=== PATIENT | female | born 1935 | race Caucasian/White ===

== ENCOUNTER 2022-07-31 11:02 | Emergency (ER) | payer OTHER ==
[~2022-07-31] VITALS: Ht 160 cm; Wt 70.4 kg
[2022-07-31 14:08] VITALS: BP 156/70
== END 2022-07-31 14:15 | disposition home or self-care (01) ==
LOC: ER 11:09
DX: S01.81XA Laceration without foreign body of other part of head, initial encounter (principal); S41.112A Laceration without foreign body of left upper arm, initial encounter; I48.91 Unspecified atrial fibrillation; Z88.8 Allergy status to other drugs, medicaments and biological substances; W18.39XA Other fall on same level, initial encounter; Y93.89 Activity, other specified; Y92.89 Other specified places as the place of occurrence of the external cause; Y99.8 Other external cause status
CPT/HCPCS: 70450; 70486; 72125; 73080; 73110

== ENCOUNTER 2023-06-29 22:46 | Emergency (ER) | payer OTHER ==
[~2023-06-29] VITALS: Ht 162.6 cm; Wt 64.9 kg
[~2023-06-29 22:46] MED LIST: ALBUAER3 IN; AMIO200T33 PO; APIX2.5T PO; DOX100T PO; FURO1TAB31 PO; FURO1TAB33 PO; LOSA50TA46 PO; LOVA20TA4 PO; NEBI5TAB2 PO
[2023-06-29 23:30] VITALS: PULSE 75; RESP 18; O2SAT 100
[2023-06-29 23:40] LABS: Basophils # (auto) 0.1 10 ^3/uL (0-0.2); Eosinophils # (auto) 0.1 10 ^3/uL (0-0.8); Lymphocytes % (auto) 14.5 % (10.0-50.0); Monocytes # (auto) 0.9 10 ^3/uL (0-1.3)
[2023-06-29 23:42] LABS: Basophils % (auto) 0.7 % (0.0-2.0); Eosinophils % (auto) 0.8 % (0.0-7.0); Hematocrit 40.4 % (36.0-46.0); Lymphocytes # (auto) 1.1 10 ^3/uL (0.4-5.4); Mean Corpuscular Hgb Conc. 32.2 g/dL (32.0-36.0); Monocytes % (auto) 11.2 % (0.0-12.0); Neutrophils # (auto) 5.7 10 ^3/uL (1.6-8.6); Neutrophils % (auto) 72.8 % (37.0-80.0); Nucleated Red Blood Cells % 0.1 %; Red Blood Cells 4.81 10^6/uL (4.0-5.20); Red Cell Distribution Width 16.6 % (11.8-14.3); White Blood Cell 7.8 10^3/uL (4.4-10.8)
[2023-06-29 23:56] LABS: INR 1.04 (0.9-1.15); Partial Thromboplastin Time 26.7 SEC (24.5-34.5)
[2023-06-29 23:58] LABS: Calcium 8.3 mg/dL (8.5-10.1); Magnesium 2.4 mg/dL (1.6-2.6); Potassium 3.9 mmol/L (3.5-5.1)
[2023-06-30 00:03] LABS: BUN/Creatinine Ratio 19.7 (10.0-20.0); Bilirubin, Total 0.4 mg/dL (0.2-1.0); Total Protein 6.5 g/dL (6.4-8.2)
[2023-06-30] MEDS ORDERED: ASPirin 81 mg TAB PO ONE (00:15)
[2023-06-30] MEDS ORDERED: IOHEXOL 350 MG/ML 100ML IJ ONE (02:36)
[2023-06-30 03:50] VITALS: BP 148/72; PULSE 88; RESP 14; TEMP 97.8; O2SAT 95
== END 2023-06-30 04:19 | disposition short-term general hospital (02) ==
LOC: ER 22:46 → EDBD 22:46 → ER 06-30 04:19
DX: I63.9 Cerebral infarction, unspecified (principal); I13.0 Hypertensive heart and chronic kidney disease with heart failure and stage 1 through stage 4 chronic kidney disease, or unspecified chronic kidney disease; N18.9 Chronic kidney disease, unspecified; I50.9 Heart failure, unspecified; E78.5 Hyperlipidemia, unspecified
CPT/HCPCS: 36415; 70450; 70496; 71045; 80053; 83735; 83880; 84484; 85025; 85610; 85730; 93005; 99291; Q9967

== ENCOUNTER 2024-11-10 15:52 | Inpatient (IN) | payer OTHER ==
[~2024-11-10] VITALS: Ht 160 cm; Wt 74.0 kg
[~2024-11-10 15:52] MED LIST changes: +LOSA-534 PO; -LOSA50TA46 PO; +NEBI5TAB10 PO; -NEBI5TAB2 PO
--- NOTE | 2024-11-10 16:18 | ED.PDOC ---
HPI Comments 89 y.o female with PMH of HDL, HTN, CKF, AFIB, and CHF, presents to the ED via EMS for an evaluation of HTN associated with palpitations, SOB, nausea and dizziness that has been ongoing for the past 3 days. Patient reports she called her PCP's office today to explain her symptoms and BP readings and was told to call 911. Upon ED arrival, patient's blood pressure read 182/95. Patient has been compliant with all medications including for HTN. Patient was taken off Lasix x 2 months ago. No other symptoms or pain reported. Patient was afebrile at arrival. Chief Complaint: High Blood Pressure Time Seen by MD: 16:09 Primary Care Provider: DR ANTHONY Reviewed Notes: Nurses Notes, Landscape Drafter Notes, Medications, Allergies Allergies: Coded Allergies: Amlodipine (Unverified Allergy, Mild, 03/22/16) Home Meds Active Scripts Furosemide (Lasix) 20 Mg Tb, 1 TAB PO DAILY@DINNER, #90 TAB 1 Refill Prov:ISIS WYNN MD 04/05/23 Albuterol Sulfate (VENTOLIN MDI) 90 Mcg Ih, 90 MCG IN Q6HPRN PRN, #1 INHALER Prov:ISIS WYNN MD 04/05/23 Doxycycline Monohydrate (Doxycycline Monohydrate) 100 Mg Tab, 100 MG PO Q12H, #14 TAB Prov:ISIS WYNN MD 04/05/23 Furosemide (Lasix) 40 Mg Tab, 40 MG PO DAILY@BREAKFAST, #30 TAB Prov:ISIS WYNN MD 04/05/23 Apixaban Base (ELIQUIS) 2.5 Mg Tab, 2.5 MG PO BID, #60 TAB Prov:ISIS WYNN MD 04/05/23 Reported Medications Lovastatin (Lovastatin) 20 Mg Tab, 20 MG PO, TAB 12/22/22 Nebivolol Hcl (Bystolic) 5 Mg Tab, 5 MG PO BID, TAB 12/22/22 Losartan Potassium (Losartan Potassium) 50 Mg Tab, 50 MG PO BID for 30 Days, MG 12/22/22 Amiodarone Hcl (Amiodarone Hcl) 200 Mg Tab, 100 MG PO BID for 30 Days 12/22/22 Information Source: Patient, Emergency Med Personnel Mode of Arrival: EMS Severity: Moderate Timing: Days (3) Duration: Since onset Prehospital treatment: 12 Lead EKG Onset: At Rest Cardiac Risk Factors: Hyperlipidemia, HTN PE Risk Factors: None History of: None Modifying Factors: Nothing Associated Signs and Symptoms: Palpitations Past Medical History PAST MEDICAL HISTORY: AFIB, CHF, CKF, High Lipids, HTN Surgical History: Denies all surgeries ASSISTANT PROFESSOR OF ENGLISH History: No Pertinent ASSISTANT PROFESSOR OF ENGLISH History Family History Family History: Reviewed,noncontributory to illness Social History Smoker: Non-Smoker Alcohol: Denies ETOH Use Drugs: Denies Drug Use Lives In: Home Constitutional: denies: chills, diaphoresis, fatigue, fever, malaise, sweats, weakness, others EENTM: denies: blurred vision, double vision, ear bleeding, ear discharge, ear drainage, ear pain, ear ringing, eye pain, eye redness, hearing loss, mouth pain, mouth swelling, nasal discharge, nose bleeding, nose congestion, nose pain, photophobia, tearing, throat pain, throat swelling, voice changes, others Respiratory: reports: SOB at rest, shortness of breath, SOB with excertion; denies: cough, hemoptysis, orthopnea, stridor, wheezing, others Cardiovascular: reports: palpitations; denies: chest pain, dizzy spells, diaphoresis, Dyspnea on exertion, edema, irregular heart beat, left arm pain, lightheadedness, PND, syncope, others Gastrointestinal: reports: nausea; denies: abdomen distended, abdominal pain, blood streaked bowels, constipated, diarrhea, dysphagia, difficulty swallowing, hematemesis, melena, poor appetite, poor fluid intake, rectal bleeding, rectal pain, vomiting, others Genitourinary: denies: abnormal vagina bleeding, burning, dyspareunia, dysuria, flank pain, frequency, hematuria, incontinence, pain, , vagina discharge, urgency, others Neurological: reports: dizziness; denies: fainting, headache, left sided numbness, left sided weakness, numbness, paresthesia, pre-existing deficit, right sided numbness, right sided weakness, seizure, speech problems, tingling, tremors, weakness, others Musculoskeletal: denies: back pain, gout, joint pain, joint swelling, muscle pain, muscle stiffness, neck pain, others Integumetry: denies: bruises, change in color, change in hair/nails, dryness, laceration, lesions, lumps, rash, wounds, others Allergic/Immunocompromised: denies: Difficulty Healing, Frequent Infections, Hives, Itching, others Hematologic/Lymphatic: denies: anemia, blood clots, easy bleeding, easy bruising, swollen glands, others Endocrine: denies: excessive hunger, excessive sweating, excessive thirst, excessive urination, flushing, intolerance to cold, intolerance to heat, unexplained weight gain, unexplained weight loss, others Psychiatric: denies: anxiety, bipolar disorder, depression, hopeless, panic disorder, schizophrenia, sleepless, suicidal, others All Other Systems: Reviewed and Negative Physical Exam General Appearance: Moderate Distress (Patient presents as a hylj-df-hkvwlutvph ill 89-year-old female.), Normal HEENT: Normal ENT Inspection, Pharynx Normal, TMs Normal Neck: Full Range of Motion, Non-Tender, Normal, Normal Inspection Respiratory: Chest Non-Tender, No Accessory Muscle Use, No Respiratory Distress, Other (Mild congestion noted in bilateral lung gramajo.) Cardiovascular: No Edema, No JVD, No Murmur, No Gallop, Normal Peripheral Pulses, Regular Rate/Rhythm Breast Exam: Deferred Gastrointestinal: No Organomegaly, Non Tender, No Pulsatile Mass, Normal Bowel Sounds, Soft Genitalia: Deferred Pelvic: Deferred Rectal: Deferred Extremities: No calf tenderness, Normal capillary refill, Normal inspection, Normal range of motion, Non-tender, No pedal edema Neurologic: Alert, No Motor Deficits, Normal Affect, Normal Mood, No Sensory Deficits Cerebellar Function: Normal Reflexes: Normal Skin: Dry, Normal Color, Warm Lymphatic: No Adenopathy Was a procedure done? Was a procedure done?: No CP Differential Dx Differential Diagnosis: A-fib, A-Flutter, Anxiety / Panic Attack, Electrolyte Disorder Differential Diagnosis: CHF, HTN Essential, HTN Accelerated Differential Diagnosis: Pneumonia X-Ray, Labs, Meds, VS Vital Signs Date Time Temp Pulse Resp B/P (MAP) Pulse Ox O2 Delivery O2 Flow Rate FiO2 11/10/24 17:33 137/65 11/10/24 16:38 77 16 97 Room Air* 0 21 11/10/24 16:31 180/95 11/10/24 16:13 97.1 90 16 180/95 (123) 98 97.1 11/10/24 16:03 98.0 76 20 182/80 (114) 91 11/10/24 15:54 79 Lab Test 11/10/24 19:48 11/10/24 19:29 11/10/24 18:15 11/10/24 16:25 Range/Units Urine Color Light-yellow Yellow Urine Clarity Clear Clear Urine pH 5.5 5.0-9.0 Urine Specific [place] 1.009 1.001-1.035 Urine Protein Negative Negative Urine Ketones Negative Negative Urine Blood Negative Negative /uL Urine Nitrite Negative Negative Urine Bilirubin Negative Negative Urine Urobilinogen Normal Negative mg/dL Urine Leukocyte Esterase Negative Negative /uL Urine RBC <1 0 - 4 /hpf Urine WBC 2 0 - 5 /hpf Urine Squamous Epithelial Cells Few <5 /hpf Urine Bacteria None seen None Seen /hpf Urine Glucose Normal Normal mg/dL Troponin I High Sensitivity 6 5 5 </=34 ng/L White Blood Count 7.3 4.4-10.8 10^3/uL Red Blood Count 5.04 4.0-5.20 10^6/uL Hemoglobin 10.8 L 12.2-16.2 g/dL Hematocrit 35.1 L 36.0-46.0 % Mean Corpuscular Volume 69.7 L 80.0-100.0 fL Mean Corpuscular Hemoglobin 21.4 L 28.0-32.0 pg Mean Corpuscular Hemoglobin Concent 30.7 L 32.0-36.0 g/dL Red Cell Distribution Width 20.1 H 11.8-14.3 % Platelet Count 340 140-450 10^3/uL Mean Platelet Volume 8.3 6.9-10.8 fL Neutrophils (%) (Auto) 70.3 37.0-80.0 % Lymphocytes (%) (Auto) 15.5 10.0-50.0 % Monocytes (%) (Auto) 10.8 0.0-12.0 % Eosinophils (%) (Auto) 1.3 0.0-7.0 % Basophils (%) (Auto) 2.1 H 0.0-2.0 % Neutrophils # (Auto) 5.2 1.6-8.6 10 ^3/uL Lymphocytes # (Auto) 1.1 0.4-5.4 10 ^3/uL Monocytes # (Auto) 0.8 0-1.3 10 ^3/uL Eosinophils # (Auto) 0.1 0-0.8 10 ^3/uL Basophils # (Auto) 0.2 0-0.2 10 ^3/uL Nucleated Red Blood Cells 0.1 % Prothrombin Time 11.9 H 9.3-11.8 sec Prothrombin Time INR 1.13 0.9-1.15 Activated Partial Thromboplast Time 29.6 24.5-34.5 SEC D-Dimer, Quantitative 0.61 H 0.0-0.49 mg/L FEU Sodium Level 140 136-145 mmol/L Potassium Level 5.1 3.5-5.1 mmol/L Chloride Level 107 98-107 mmol/L Carbon Dioxide Level 26 20-31 mmol/L Anion Gap 7 5-15 Blood Urea Nitrogen 17 9-23 mg/dL Creatinine 0.87 0.550-1.02 mg/dL Glomerular Filtration Rate Calc 64 >90 mL/min BUN/Creatinine Ratio 19.5 10.0-20.0 Serum Glucose 103 74-106 mg/dL Calcium Level 9.6 8.7-10.4 mg/dL Total Bilirubin 0.7 0.2-1.0 mg/dL Aspartate Amino Transferase (AST) 49 H 13-40 U/L Alanine Aminotransferase (ALT) 23 7-40 U/L Alkaline Phosphatase 197 H 46-116 U/L B-Type Natriuretic Peptide 330.36 0-100 pg/mL Total Protein 6.4 5.7-8.2 g/dL Albumin 4.2 3.2-4.8 g/dL Current Medications Medications (Trade) Dose Ordered Sig/Iain Route Start Time Stop Time Status Last Admin Clonidine HCl (Catapres Tablet) 0.2 mg ONCE ONCE PO 11/10/24 16:15 11/10/24 16:16 DC 11/10/24 16:31 X-Ray, Labs, Meds, VS Comment All studies performed the ED were reviewed by me personally. EKG revealed a rate controlled atrial fibrillation with a rate of 79. Ventricular premature complexes noted with nonspecific intraventricular conduction delays. QT interval of 420. Laboratories revealed an elevated BNP, elevated alk-phos and mild anemia. Imaging studies revealed continue cardiomegaly with improved bilateral airspace disease. Patient will be admitted for acute CHF exacerbation as well as hypertensive urgency. Patient will require a cardiac consultation tomorrow. Time of 1ST Reevaluation: 01:57 Reevaluation 1ST: Improved Consultation: PCP Patient Education/Counseling: Diagnosis, Treatment, Prognosis Family Education/Counseling: Diagnosis, Treatment, No Family Present Departure 1 Departure Time of Disposition: 01:58 Impression: Primary Impression: Atrial fibrillation Additional Impressions: Acute exacerbation of CHF (congestive heart failure) Hypertensive urgency Anemia Disposition: 09 ADMITTED INPATIENT Condition: Stable Discharged With: Self Critical Care Note Critical Care Time?: No Stability Stability form required: No Heart Score Heart Score: Heart Score Response (Comments) Value History Slightly Suspicious 0 EKG Repolarization Disturb 1 Age >65 2 Risk Factors >3 or Hx ASHD 2 Troponin Normal limit 0 Total 5 I personally scribed for DAVID CRAWFORD PAC ([email or web address]) on 11/10/24 at 16:18. Electronically submitted by Renetta Gunn ([facility]). DAVID CRAWFORD PAC Nov 10, 2024 16:18
[2024-11-10] MEDS: cloNIDine HCL 0.1 MG TAB PO ONE (16:31)
[2024-11-10 16:38] VITALS: PULSE 77; RESP 16; O2SAT 97
[2024-11-10 16:38] LABS: Eosinophils # (auto) 0.1 10 ^3/uL (0-0.8); Hemoglobin 10.8 g/dL (12.2-16.2); Mean Corpuscular Hemoglobin 21.4 pg (28.0-32.0); Monocytes # (auto) 0.8 10 ^3/uL (0-1.3)
--- NOTE | 2024-11-10 16:38 | DVH ---
EXAMINATION: AP portable chest radiograph CLINICAL HISTORY: Shortness of breath COMPARISON: XY CHEST XRAY 1 VIEW on DOS: 06/29/23, XY CHEST PORTABLE on DOS: 04/04/23, CXR1 on DOS: TECHNIQUE: SINGLE VIEW OF THE CHEST. FINDINGS: Persistent cardiomegaly. Improved bilateral pulmonary airspace disease. No dominant consolidations. The costophrenic angles are clear. No sizable pleural effusions or pneumo thorax identified. The cardiomediastinal silhouette appears within normal limits given technique. IMPRESSION: 1. Unimproved cardiomegaly from 06/29/2023 2. Improved bilateral airspace disease compared to 06/29/2023.
[2024-11-10 16:40] LABS: Basophils # (auto) 0.2 10 ^3/uL (0-0.2); Basophils % (auto) 2.1 % (0.0-2.0); Eosinophils % (auto) 1.3 % (0.0-7.0); Hematocrit 35.1 % (36.0-46.0); Lymphocytes # (auto) 1.1 10 ^3/uL (0.4-5.4); Lymphocytes % (auto) 15.5 % (10.0-50.0); Mean Corpuscular Hgb Conc. 30.7 g/dL (32.0-36.0); Mean Corpuscular Volume 69.7 fL (80.0-100.0); Monocytes % (auto) 10.8 % (0.0-12.0); Neutrophils # (auto) 5.2 10 ^3/uL (1.6-8.6); Neutrophils % (auto) 70.3 % (37.0-80.0); Nucleated Red Blood Cells % 0.1 %; Platelet Count (auto) 340 10^3/uL (140-450); Red Blood Cells 5.04 10^6/uL (4.0-5.20); White Blood Cell 7.3 10^3/uL (4.4-10.8)
[2024-11-10 16:44] LABS: Red Cell Distribution Width 20.1 % (11.8-14.3)
[2024-11-10 16:53] LABS: Alanine Aminotransferase 23 U/L (7-40); Albumin 4.2 g/dL (3.2-4.8); Anion Gap 7 (5-15); BUN/Creatinine Ratio 19.5 (10.0-20.0); Bilirubin, Total 0.7 mg/dL (0.2-1.0); Blood Urea Nitrogen 17 mg/dL (9-23); Calcium 9.6 mg/dL (8.7-10.4); Carbon Dioxide 26 mmol/L (20-31); Chloride 107 mmol/L (98-107); Glucose 103 mg/dL (74-106); Potassium 5.1 mmol/L (3.5-5.1); Sodium 140 mmol/L (136-145); Total Protein 6.4 g/dL (5.7-8.2)
[2024-11-10 17:24] LABS: Alkaline Phosphatase 197 U/L (46-116); Aspartate Aminotransferase 49 U/L (13-40)
[2024-11-10 17:37] LABS: INR 1.13 (0.9-1.15); Partial Thromboplastin Time 29.6 SEC (24.5-34.5); Prothrombin Time 11.9 sec (9.3-11.8)
--- NOTE | 2024-11-10 18:58 | ECG ---
[facility] Test Date: 2024-11-10 Test Time: 15:54:49 Pat Name: TAMMI CHARLES Department: ED Room: 0272T Gender: F Pairing Machine Operator: ROBERT : [id number] Requested By: DAVID CRAWFORD Order Number: [id number] Reading MD: Srinivas Ayala Measurements Intervals [place] Rate: 79 P: 0 WI: 0 QRS: 135 QRSD: 115 T: 29 QT: 420 QTc: 482 Interpretive Statements Atrial fibrillation Ventricular premature complex Nonspecific intraventricular conduction delay Low voltage, precordial leads Electronically Signed On 11-17-2024 9:47:12 PST by Srinivas Ayala Please click the below link to view image of tracing.
[2024-11-11 01:37] LABS: Urine Bacteria None Seen /hpf (None Seen)
[2024-11-11 01:46] LABS: Urine Blood Negative /uL (Negative); Urine Clarity Clear (Clear); Urine Color Light-Yellow (Yellow); Urine Protein, UAD Negative (Negative); Urine Specific Gravity 1.009 (1.001-1.035); Urine Urobilinogen Normal (Negative); Urine WBC 2 /hpf (0 - 5); Urine pH 5.5 (5.0-9.0)
[2024-11-11 04:00] VITALS: PULSE 69; RESP 17; O2SAT 99
[2024-11-11] MEDS: FUROSEMIDE 40 MG/4 ML VIAL IV ONE (04:07)
[2024-11-11] MEDS: IOHEXOL 350 MG/ML 100ML IJ ONE (04:35)
--- NOTE | 2024-11-11 04:50 | DVH ---
EXAM: CT HEAD WITHOUT CONTRAST INDICATION: aloc TECHNIQUE: CT of the head without intravenous contrast. Radiation Dose Information: CT Dose: Dose-length product is 997.71 mGy*cm The dose indicators for CT are the volume Computed Tomography (CT) Dose Index (CTDIvol) and the Dose Length Product (DLP), and are measured in units of mGy and mGy-cm, respectively. These indicators are not patient dose, but values generated from the CT scanner acquisition factors. The report includes radiation exposure data for exposures received during this examination. COMPARISON: CT HEAD WITHOUT CONTRAST on DOS: 06/29/23, CT HEAD WITHOUT CONTRAST on DOS: 04/04/23 FINDINGS: 4th ventricle is midline without mass impression. The ventricles appear appropriate in size and symm etry. Sorenson-white matter differentiation is preserved. Scattered areas of periventricular white matte r hypoattenuation suggesting chronic small vessel ischemic change. No evidence of midline shift, hemo rrhage, mass or territorial infarction. Paranasal sinuses are well aerated. IMPRESSION: 1. No acute intracranial abnormality.
[2024-11-11] MEDS ORDERED: NITROGLYCERIN 0.4 MG SL TAB SL PRN (05:15)
[2024-11-11] MEDS ORDERED: ONDANSETRON HCL 4 MG/2 ML VIAL IV PRN (05:15)
[2024-11-11] MEDS ORDERED: DOCUSATE SOD 100 MG CAP PO PRN (05:15)
[2024-11-11] MEDS ORDERED: MORPHINE SULFATE INJ 2 MG/ml SYRG IV PRN (05:15)
[2024-11-11] MEDS ORDERED: cloNIDine HCL 0.1 MG TAB PO PRN (05:15)
[2024-11-11] MEDS ORDERED: ACETAMINOPHEN 325 MG TAB PO PRN (05:15)
[2024-11-11] MEDS ORDERED: hydrALAZINE HCL 20 MG/ML VL IV PRN (05:15)
--- NOTE | 2024-11-11 05:22 | DVH ---
INDICATION: elevated d dimer TECHNIQUE: Multidetector CTA of the chest was performed of the chest with 100 cc of intravenous contr ast. PULMONARY ANGIOGRAPHY PROTOCOL was utilized using a bolus-tracking technique centered on the yassine n pulmonary artery. Axial, coronal and sagittal multiplanar and MIP reformats were performed. Radiation Dose Information: CT Dose: Dose-length product is 1219.98 mGy*cm Comparison: Chest x-ray 11/10/[address] dose [address] for [address] are the volume Computed Tomography (CT) Dose Index (CTDIvol) and the Dose Length Product (DLP), and are measured in units of mGy and mGy-cm, respectively. These indicators are not patient dose, but values generated from the CT scanner acquisition factors. The report includes radiation exposure data for exposures received during this examination. Findings: Evaluation of the pulmonary artery demonstrates no evidence of filling defect to suggest pulmonary em bolus. The thoracic aorta appears normal in caliber and contour. There is cardiomegaly with biatrial enlargement. No pericardial effusion. Small to moderate right and small left pleural effusion. Modera te pulmonary vascular congestion. Bibasilar atelectasis. No significant adenopathy. Airway appears pa tent. Visualized portions of the upper abdomen demonstrates pancreatic atrophy. The kidneys appear mildly atrophic. IMPRESSION: 1. No evidence of pulmonary embolism. 2. Small to moderate right and small left pleural effusion with moderate pulmonary vascular congestio n. 3. Cardiomegaly
--- NOTE | 2024-11-11 05:37 | DVHHP2 ---
DENY PANDEY JACKET CHANGER 11/11/24 0537: History of Present Illness Reason for Visit: Hypertension, SOB,Palpitations History of Present Illness 89-year-old female with past history of CHF, a fib, Hypertension, hyperlipidemia, CKD Presents with complaints of uncontrolled hypertension x 3 days. Patient also endorses shortness of breath with palpitations And dizziness. Patient states that she feels very short of breath When she feels the fluttering in her chest. Patient also endorses that she stopped taking Lasix in The last months. Patient also endorses That PCP sent her into the emergency department for evaluation. On arrival to the emergency department patient's blood pressure was 182/80 And was experiencing the symptoms. Patient denies fevers, chills, Nausea, vomiting, Leg swelling. Patient states her director of assessing is Dr. Juarez. Cardiovascular: CHF, HTN, hyperipidemia Smoke: No ALCOHOL: none Drugs: None Lives: with Family Review of Systems Constitutional: No: Fever, Chills, Sweats, Weakness, Malaise, Other Eyes: No: Pain, Vision change, Conjunctivae inflammation, Eyelid inflammation, Other, Redness ENT: No: Ear pain, Ear discharge, Nose pain, Nose discharge, Nose congestion, Mouth pain, Mouth swelling, Throat pain, Throat swelling, Other Respiratory: Shortness of breath; No: Cough, Dry, SOB with excertion, Wheezing, Hemoptysis, Pleuritic Pain, Sputum, Wheezing, Other Cardiovascular: Chest Pain, Palpitations, Lt Headedness; No: Orthopnea, Paroxysmal Noc. Dyspnea, Edema, Other Gastrointestinal: No: Nausea, Vomiting, Abdominal Pain, Diarrhea, Constipation, Melena, Hematochezia, Other Genitourinary: No Dysuria, No Frequency, No Incontinence, No Hematuria, No Retention, No Other Musculoskeletal: No: other, neck pain, shoulder pain, arm pain, back pain, hand pain, leg pain, foot pain Skin: No: Rash, Lesions, Jaundice, Bruising, Other Neurological: No: Weakness, Numbness, Incoordination, Change in speech, Confusion, Seizures, Other Allergies: Coded Allergies: Amlodipine (Unverified Allergy, Mild, 03/22/16) Medications Current Medications Medications Dose Ordered Sig/Iain Route Start Time Stop Time Status Last Admin Dose Admin Docusate Sodium 100 mg BIDPRN PRN PO 11/11/24 05:15 UNV Acetaminophen 650 mg Q6HP PRN PO 11/11/24 05:15 UNV Ondansetron HCl 4 mg Q4HP PRN IV 11/11/24 05:15 UNV Nitroglycerin 0.4 mg Q5MINP PRN SL 11/11/24 05:15 UNV Morphine Sulfate 2 mg Q30M PRN IV 11/11/24 05:15 UNV Apixaban 2.5 mg BID PO 11/11/24 10:00 UNV Amiodarone HCl 100 mg BID PO 11/11/24 10:00 UNV Losartan Potassium 50 mg BID PO 11/11/24 10:00 UNV Atorvastatin Calcium 40 mg DAILY@2200 PO 11/11/24 22:00 UNV Clonidine HCl 0.1 mg BIDP PRN PO 11/11/24 05:15 UNV Hydralazine HCl 10 mg Q6HPRN PRN IV 11/11/24 05:15 UNV Exam Vital Signs Vital Signs Date Time Temp Pulse Resp B/P (MAP) Pulse Ox O2 Delivery O2 Flow Rate FiO2 11/11/24 04:07 158/66 11/10/24 16:38 77 16 97 Room Air* 0 21 11/10/24 16:13 97.1 97.1 General Appearance: Alert, Oriented X3, Cooperative, mild distress HEENT: Atraumatic, PERRLA, EOMI Respiratory: Clear to auscultation, Normal air movement Cardiovascular: Regular rate, Normal S1, Normal S2 Abdominal: Normal bowel sounds, Soft, No tenderness Extremities: No clubbing, No cyanosis, Normal pulses, Other (Trace BLE Edema) Skin: No rashes, No breakdown Neuro: Normal speech, Strength at 5/5 X4 ext Psych/Mental Status: Mental status NL, Mood NL Labs/Xrays Labs Test 11/10/24 19:48 11/10/24 19:29 11/10/24 16:25 Range/Units Urine Color Light-yellow Yellow Urine Clarity Clear Clear Urine pH 5.5 5.0-9.0 Urine Specific [place] 1.009 1.001-1.035 Urine Protein Negative Negative Urine Ketones Negative Negative Urine Blood Negative Negative /uL Urine Nitrite Negative Negative Urine Bilirubin Negative Negative Urine Urobilinogen Normal Negative mg/dL Urine Leukocyte Esterase Negative Negative /uL Urine RBC <1 0 - 4 /hpf Urine WBC 2 0 - 5 /hpf Urine Squamous Epithelial Cells Few <5 /hpf Urine Bacteria None seen None Seen /hpf Urine Glucose Normal Normal mg/dL Troponin I High Sensitivity 6 </=34 ng/L White Blood Count 7.3 4.4-10.8 10^3/uL Red Blood Count 5.04 4.0-5.20 10^6/uL Hemoglobin 10.8 L 12.2-16.2 g/dL Hematocrit 35.1 L 36.0-46.0 % Mean Corpuscular Volume 69.7 L 80.0-100.0 fL Mean Corpuscular Hemoglobin 21.4 L 28.0-32.0 pg Mean Corpuscular Hemoglobin Concent 30.7 L 32.0-36.0 g/dL Red Cell Distribution Width 20.1 H 11.8-14.3 % Platelet Count 340 140-450 10^3/uL Mean Platelet Volume 8.3 6.9-10.8 fL Neutrophils (%) (Auto) 70.3 37.0-80.0 % Lymphocytes (%) (Auto) 15.5 10.0-50.0 % Monocytes (%) (Auto) 10.8 0.0-12.0 % Eosinophils (%) (Auto) 1.3 0.0-7.0 % Basophils (%) (Auto) 2.1 H 0.0-2.0 % Neutrophils # (Auto) 5.2 1.6-8.6 10 ^3/uL Lymphocytes # (Auto) 1.1 0.4-5.4 10 ^3/uL Monocytes # (Auto) 0.8 0-1.3 10 ^3/uL Eosinophils # (Auto) 0.1 0-0.8 10 ^3/uL Basophils # (Auto) 0.2 0-0.2 10 ^3/uL Nucleated Red Blood Cells 0.1 % Prothrombin Time 11.9 H 9.3-11.8 sec Prothrombin Time INR 1.13 0.9-1.15 Activated Partial Thromboplast Time 29.6 24.5-34.5 SEC D-Dimer, Quantitative 0.61 H 0.0-0.49 mg/L FEU Sodium Level 140 136-145 mmol/L Potassium Level 5.1 3.5-5.1 mmol/L Chloride Level 107 98-107 mmol/L Carbon Dioxide Level 26 20-31 mmol/L Anion Gap 7 5-15 Blood Urea Nitrogen 17 9-23 mg/dL Creatinine 0.87 0.550-1.02 mg/dL Glomerular Filtration Rate Calc 64 >90 mL/min BUN/Creatinine Ratio 19.5 10.0-20.0 Serum Glucose 103 74-106 mg/dL Calcium Level 9.6 8.7-10.4 mg/dL Total Bilirubin 0.7 0.2-1.0 mg/dL Aspartate Amino Transferase (AST) 49 H 13-40 U/L Alanine Aminotransferase (ALT) 23 7-40 U/L Alkaline Phosphatase 197 H 46-116 U/L B-Type Natriuretic Peptide 330.36 0-100 pg/mL Total Protein 6.4 5.7-8.2 g/dL Albumin 4.2 3.2-4.8 g/dL Assessment/Plan Assessment/Plan Uncontrolled hypertension Palpitations Chronic atrial fibrillation, controlled Hx CHF Bilateral small pleural effusions Plan Admit telemetry Cardiology consult. Echocardiogram. As needed anti hypertensive for optimal BP management. Continue home medication. As needed supplemental oxygen to maintain O2 saturation greater than 93%. Physical therapy evaluation GI ppx protonix / DVT ppx SCD, on oral anticoagulation. Plan discussed with: Patient My Orders Orders - DENY PANDEY NP Procedure Category Date Status Time Admit ADMIT 11/11/24 Transmitted 05:02 Code Status CODE 11/11/24 Transmitted 05:02 Vital Signs [facility] 11/11/24 In Process 05:02 Review Orders With MILI 11/11/24 In Process Adm. 05:02 Encourage Activity As MILI 11/11/24 In Process Tolerate 05:02 Consistent DIET 11/11/24 Transmitted Carb(Ccho)Diabetes Breakfast Oxygen By Face Mask RT 11/11/24 Transmitted 05:02 Docusate Sodium PHA 11/11/24 Logged Capsule (Colace 05:15 Acetaminophen Tablet PHA 11/11/24 Logged (Tylenol Tablet) 05:15 Notify Of Changes MILI 11/11/24 In Process From Base 05:02 Advance Directive [facility] 11/11/24 In Process 05:02 Echo 2d Mode Cardiac US 11/11/24 Logged DOP 05:02 Basic Metabolic Panel LAB 11/12/24 Verified 05:00 Basic Metabolic Panel LAB 11/13/24 Verified 05:00 Basic Metabolic Panel LAB 11/14/24 Verified 05:00 Basic Metabolic Panel LAB 11/15/24 Verified 05:00 Basic Metabolic Panel LAB 11/16/24 Verified 05:00 Complete Blood Count LAB 11/12/24 Verified 05:00 Complete Blood Count LAB 11/13/24 Verified 05:00 Complete Blood Count LAB 11/14/24 Verified 05:00 Complete Blood Count LAB 11/15/24 Verified 05:00 Complete Blood Count LAB 11/16/24 Verified 05:00 Patient Condition ORDERS 11/11/24 Transmitted 05:02 Allergies [facility] 11/11/24 In Process 05:02 Ondansetron Hcl [facility] 11/11/24 Logged (Zofran) 05:15 Sequential [facility] 11/11/24 In Process Compression Device Nitroglycerin [facility] 11/11/24 Logged Sublingual (Ntrostat 05:15 Morphine Sulfate [facility] 11/11/24 Logged Injection 05:15 Stat Ekg For Chest [facility] 11/11/24 In Process Pain 05:02 Notify Md Of Changes [facility] 11/11/24 In Process From Base 05:02 Wood Drill Operator For [facility] 11/11/24 In Process 24 Hours 05:02 Emergency Dysrhythmia [facility] 11/11/24 In Process Protocol 05:02 Rhythm Strips Once [facility] 11/11/24 In Process Every Shift 05:02 Oxygen By Nasal RT 11/11/24 Transmitted Cannula 05:02 * Cardiology Consult CONS 11/11/24 Transmitted 05:02 Apixaban (Eliquis) PHA 11/11/24 Logged 10:00 Amiodarone Tablet PHA 11/11/24 Logged (Cordarone Tablet) 10:00 Losartan Tablet PHA 11/11/24 Logged (Cozaar Tablet) 10:00 Atorvastatin (Lipitor) PHA 11/11/24 Logged 22:00 Clonidine Hcl Tablet [facility] 11/11/24 Logged (Catapres Tablet) 05:15 Pt Request For Service PT 11/11/24 Logged 05:02 Hydralazine Injection [facility] 11/11/24 Logged (Apresoline Inject 05:15 Date of Service: Nov 11, 2024 Billing Provider: ZEB JEAN BAPTISTE MD Common Visit Codes: NOT BILLABLE ZEB JEAN BAPTISTE MD 11/11/24 1400: Review of Systems Allergies: Coded Allergies: Amlodipine (Unverified Allergy, Mild, 03/22/16) Additional Comments Additional Comments Additional Comments Patient is seen, evaluated and admitted by nurse practitioner this morning. I agree with the nurse practitioner's evaluation, documentation, assessment and ca re plan as outlined. DENY PANDEY NP Nov 11, 2024 05:37 ZEB JEAN BAPTISTE MD Nov 11, 2024 14:00
[2024-11-11] MEDS: LOSARTAN POTASSIUM 50 MG TAB PO SCH ×2 (11:10→22:02)
[2024-11-11] MEDS: AMIODARONE HCL 200 MG TAB PO SCH (11:14)
[2024-11-11] MEDS: APIXABAN 2.5 MG TAB PO SCH (11:18)
[2024-11-11 11:26] VITALS: PULSE 57; RESP 19; O2SAT 97
--- NOTE | 2024-11-11 12:31 | DVHINCON2 ---
Date of service: Nov 11, 2024 History of Present Illness History of Present Illness 89-year-old female with past history of CHF, a fib, Hypertension, hyperlipidemia, CKD Presents with complaints of uncontrolled hypertension x 3 days. Patient also endorses shortness of breath with palpitations And dizziness. Patient states that she feels very short of breath When she feels the fluttering in her chest. Patient also endorses that she stopped taking Lasix in The last months. Patient also endorses That PCP sent her into the emergency department for evaluation. On arrival to the emergency department patient's blood pressure was 182/80 And was experiencing the symptoms. Patient denies fevers, chills, Nausea, vomiting, Leg swelling. 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 Cardiovascular: CHF, HTN, hyperipidemia Smoke: No ALCOHOL: none Drugs: None Lives: with Family Past Medical History reviewed Family History: Alzheimer's disease G8 MOTHER Cardiovascular disease G8 FATHER Allergies: Coded Allergies: Amlodipine (Unverified Allergy, Mild, 03/22/16) Home Meds Active Scripts Furosemide (Lasix) 20 Mg Tb, 1 TAB PO DAILY@DINNER, #90 TAB 1 Refill Prov:ISIS WYNN MD 04/05/23 Albuterol Sulfate (VENTOLIN MDI) 90 Mcg Ih, 90 MCG IN Q6HPRN PRN, #1 INHALER Prov:ISIS WYNN MD 04/05/23 Doxycycline Monohydrate (Doxycycline Monohydrate) 100 Mg Tab, 100 MG PO Q12H, #14 TAB Prov:ISIS WYNN MD 04/05/23 Furosemide (Lasix) 40 Mg Tab, 40 MG PO DAILY@BREAKFAST, #30 TAB Prov:ISIS WYNN MD 04/05/23 Apixaban Base (ELIQUIS) 2.5 Mg Tab, 2.5 MG PO BID, #60 TAB Prov:ISIS WYNN MD 04/05/23 Reported Medications Lovastatin (Lovastatin) 20 Mg Tab, 20 MG PO, TAB 12/22/22 Nebivolol Hcl (Bystolic) 5 Mg Tab, 5 MG PO BID, TAB 12/22/22 Losartan Potassium (Losartan Potassium) 50 Mg Tab, 50 MG PO BID for 30 Days, MG 12/22/22 Amiodarone Hcl (Amiodarone Hcl) 200 Mg Tab, 100 MG PO BID for 30 Days 12/22/22 Current Medications Current Medications Medications (Trade) Dose Ordered Sig/Iain Route PRN Reason Start Time Stop Time Status Last Admin Docusate Sodium (Colace Capsule) 100 mg BIDPRN PRN PO FOR CONSTIPATION 11/11/24 05:15 Acetaminophen (Tylenol Tablet) 650 mg Q6HP PRN PO PAIN SCALE 1-3 OR TEMP>100.4 11/11/24 05:15 Ondansetron HCl (Zofran) 4 mg Q4HP PRN IV NAUSEA / VOMITING 11/11/24 05:15 Nitroglycerin (Ntrostat Sublingual) 0.4 mg Q5MINP PRN SL FOR CHEST PAIN 11/11/24 05:15 Morphine Sulfate 2 mg Q30M PRN IV FOR CHEST PAIN 11/11/24 05:15 Apixaban (Eliquis) 2.5 mg BID PO 11/11/24 10:00 11/11/24 11:18 Amiodarone HCl (Cordarone Tablet) 100 mg BID PO 11/11/24 10:00 11/11/24 11:14 Losartan Potassium (Cozaar Tablet) 50 mg BID PO 11/11/24 10:00 Atorvastatin Calcium (Lipitor) 40 mg DAILY@2200 PO 11/11/24 22:00 Clonidine HCl (Catapres Tablet) 0.1 mg BIDP PRN PO SBP > 180 11/11/24 05:15 Hydralazine HCl (Apresoline Injection) 10 mg Q6HPRN PRN IV SBP > 160 11/11/24 05:15 Review of Systems 10 pt ros otherwise negative Vital Signs Vital Signs Date Time Temp Pulse Resp B/P (MAP) Pulse Ox O2 Delivery O2 Flow Rate FiO2 11/11/24 11:27 59 16 105/45 (65) 97 11/11/24 11:26 Room Air* 0 21 11/11/24 04:00 98.2 98.2 Physical Exam nad s1 s2 rrr ctab soft nt/nd no edema Labs/Diagnostic Data Labs Test 11/10/24 19:48 11/10/24 19:29 11/10/24 16:25 Range/Units Urine Color Light-yellow Yellow Urine Clarity Clear Clear Urine pH 5.5 5.0-9.0 Urine Specific [place] 1.009 1.001-1.035 Urine Protein Negative Negative Urine Ketones Negative Negative Urine Blood Negative Negative /uL Urine Nitrite Negative Negative Urine Bilirubin Negative Negative Urine Urobilinogen Normal Negative mg/dL Urine Leukocyte Esterase Negative Negative /uL Urine RBC <1 0 - 4 /hpf Urine WBC 2 0 - 5 /hpf Urine Squamous Epithelial Cells Few <5 /hpf Urine Bacteria None seen None Seen /hpf Urine Glucose Normal Normal mg/dL Troponin I High Sensitivity 6 </=34 ng/L White Blood Count 7.3 4.4-10.8 10^3/uL Red Blood Count 5.04 4.0-5.20 10^6/uL Hemoglobin 10.8 L 12.2-16.2 g/dL Hematocrit 35.1 L 36.0-46.0 % Mean Corpuscular Volume 69.7 L 80.0-100.0 fL Mean Corpuscular Hemoglobin 21.4 L 28.0-32.0 pg Mean Corpuscular Hemoglobin Concent 30.7 L 32.0-36.0 g/dL Red Cell Distribution Width 20.1 H 11.8-14.3 % Platelet Count 340 140-450 10^3/uL Mean Platelet Volume 8.3 6.9-10.8 fL Neutrophils (%) (Auto) 70.3 37.0-80.0 % Lymphocytes (%) (Auto) 15.5 10.0-50.0 % Monocytes (%) (Auto) 10.8 0.0-12.0 % Eosinophils (%) (Auto) 1.3 0.0-7.0 % Basophils (%) (Auto) 2.1 H 0.0-2.0 % Neutrophils # (Auto) 5.2 1.6-8.6 10 ^3/uL Lymphocytes # (Auto) 1.1 0.4-5.4 10 ^3/uL Monocytes # (Auto) 0.8 0-1.3 10 ^3/uL Eosinophils # (Auto) 0.1 0-0.8 10 ^3/uL Basophils # (Auto) 0.2 0-0.2 10 ^3/uL Nucleated Red Blood Cells 0.1 % Prothrombin Time 11.9 H 9.3-11.8 sec Prothrombin Time INR 1.13 0.9-1.15 Activated Partial Thromboplast Time 29.6 24.5-34.5 SEC D-Dimer, Quantitative 0.61 H 0.0-0.49 mg/L FEU Sodium Level 140 136-145 mmol/L Potassium Level 5.1 3.5-5.1 mmol/L Chloride Level 107 98-107 mmol/L Carbon Dioxide Level 26 20-31 mmol/L Anion Gap 7 5-15 Blood Urea Nitrogen 17 9-23 mg/dL Creatinine 0.87 0.550-1.02 mg/dL Glomerular Filtration Rate Calc 64 >90 mL/min BUN/Creatinine Ratio 19.5 10.0-20.0 Serum Glucose 103 74-106 mg/dL Calcium Level 9.6 8.7-10.4 mg/dL Total Bilirubin 0.7 0.2-1.0 mg/dL Aspartate Amino Transferase (AST) 49 H 13-40 U/L Alanine Aminotransferase (ALT) 23 7-40 U/L Alkaline Phosphatase 197 H 46-116 U/L B-Type Natriuretic Peptide 330.36 0-100 pg/mL Total Protein 6.4 5.7-8.2 g/dL Albumin 4.2 3.2-4.8 g/dL Assessment 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
--- NOTE | 2024-11-11 13:15 | DVHSR ---
APPROVED REPORT EXAM: Two-dimensional and M-mode echocardiogram with Doppler and color Doppler. Blood Pressure: 130/50 mmHg INDICATION Elevated BNP RISK FACTORS Height: 5' 3", Weight: 150 DIMENSIONS LVDd4.3 (3.8-5.7cm)LA (2D)4.0 (1.9-4.0cm)Aortic Root3.4 (2.0-3.7cm) LVDs3.2 (2.5-4.0cm)LA (MM) (1.9-4.0cm)Aortic Cusp Exc1.4 (1.5-2.0cm) EF (%) 50.0 (55-70%)Rt. Atrium4.8 (1.9-4.0cm)Asc. Aorta cm IVSd1.1 (0.7-1.1cm)RV (D) (1.8-2.4cm) PWd1.0 (0.7-1.1cm) Mitral Valve MitralMitral Stenosis E wave1.10m/sMV Mean GR.mmHg A wave0.50m/sMV Peak GR.mmHg E/A ratio2.22D MVAcm2 Aortic Valve Aortic ValveAortic Stenosis V10.60m/Jarret Mean GR.3mmHg V21.20m/Jarret Peak GR.6mmHg LVOT Diameter2.2 (1.8-2.4cm)Doppler AVA1.90cm2 AI P 1/2 Pbjt824.57ms Pulmonic Valve V20.40m/s Tricuspid Valve TR Velocity2.90m/s [id number] Conclusion lvef 40% by visuale stimate RV enlarged left atrium enlarged
[2024-11-11 18:51] VITALS: BP 158/59; PULSE 81; RESP 17; RESP 18; TEMP 97.7
[2024-11-11 20:00] VITALS: PULSE 82; PULSE 86; RESP 16
[2024-11-11 21:00] VITALS: BP 137/62; PULSE 82; RESP 18; TEMP 97.8; O2SAT 96
[2024-11-11] MEDS: ATORVASTATIN 20 MG TAB PO SCH (22:01)
[2024-11-12] VITALS (8 sets, daily range): BP systolic 105–138; BP diastolic 42–63; PULSE 68–85; RESP 16–20; TEMP 36.3; O2SAT 94–98
[2024-11-12 07:09] LABS: Basophils # (auto) 0.1 10 ^3/uL (0-0.2); Eosinophils # (auto) 0.1 10 ^3/uL (0-0.8); Eosinophils % (auto) 1.6 % (0.0-7.0); Lymphocytes # (auto) 0.8 10 ^3/uL (0.4-5.4); Monocytes # (auto) 0.7 10 ^3/uL (0-1.3)
[2024-11-12 07:12] LABS: Basophils % (auto) 1.9 % (0.0-2.0); Hematocrit 32.1 % (36.0-46.0); Lymphocytes % (auto) 14.1 % (10.0-50.0); Mean Corpuscular Hemoglobin 21.5 pg (28.0-32.0); Mean Corpuscular Hgb Conc. 31.2 g/dL (32.0-36.0); Mean Corpuscular Volume 68.8 fL (80.0-100.0); Neutrophils # (auto) 3.9 10 ^3/uL (1.6-8.6); Neutrophils % (auto) 69.4 % (37.0-80.0); Nucleated Red Blood Cells % 0.1 %; Platelet Count (auto) 284 10^3/uL (140-450); Red Blood Cells 4.66 10^6/uL (4.0-5.20); Red Cell Distribution Width 20.1 % (11.8-14.3); White Blood Cell 5.6 10^3/uL (4.4-10.8)
[2024-11-12 07:17] LABS: Chloride 105 mmol/L (98-107); Sodium 141 mmol/L (136-145)
[2024-11-12 07:18] LABS: Anion Gap 7 (5-15); Carbon Dioxide 29 mmol/L (20-31)
[2024-11-12 07:23] LABS: BUN/Creatinine Ratio 19.6 (10.0-20.0); Blood Urea Nitrogen 18 mg/dL (9-23); Glucose 95 mg/dL (74-106)
[2024-11-12] MEDS ORDERED: LOSA-534 PO (14:40)
[2024-11-12] MEDS ORDERED: NEBI5TAB10 PO (14:40)
--- NOTE | 2024-11-12 14:42 | DVHDS2 ---
Discharge Summary Date of Admission Nov 11, 2024 at 05:02 Date of Discharge: Nov 12, 2024 Admitting Diagnosis Shortness of breath and fast heart rate Labs/Diagnostic Data: Laboratory Results Test 11/12/24 06:38 11/10/24 19:48 11/10/24 19:29 11/10/24 16:25 White Blood Count 5.6 10^3/uL (4.4-10.8) Red Blood Count 4.66 10^6/uL (4.0-5.20) Hemoglobin 10.0 g/dL (12.2-16.2) Hematocrit 32.1 % (36.0-46.0) Mean Corpuscular Volume 68.8 fL (80.0-100.0) Mean Corpuscular Hemoglobin 21.5 pg (28.0-32.0) Mean Corpuscular Hemoglobin Concent 31.2 g/dL (32.0-36.0) Red Cell Distribution Width 20.1 % (11.8-14.3) Platelet Count 284 10^3/uL (140-450) Mean Platelet Volume 8.5 fL (6.9-10.8) Neutrophils (%) (Auto) 69.4 % (37.0-80.0) Lymphocytes (%) (Auto) 14.1 % (10.0-50.0) Monocytes (%) (Auto) 13.0 % (0.0-12.0) Eosinophils (%) (Auto) 1.6 % (0.0-7.0) Basophils (%) (Auto) 1.9 % (0.0-2.0) Neutrophils # (Auto) 3.9 10 ^3/uL (1.6-8.6) Lymphocytes # (Auto) 0.8 10 ^3/uL (0.4-5.4) Monocytes # (Auto) 0.7 10 ^3/uL (0-1.3) Eosinophils # (Auto) 0.1 10 ^3/uL (0-0.8) Basophils # (Auto) 0.1 10 ^3/uL (0-0.2) Nucleated Red Blood Cells 0.1 % Sodium Level 141 mmol/L (136-145) Potassium Level 4.0 mmol/L (3.5-5.1) Chloride Level 105 mmol/L (98-107) Carbon Dioxide Level 29 mmol/L (20-31) Anion Gap 7 (5-15) Blood Urea Nitrogen 18 mg/dL (9-23) Creatinine 0.92 mg/dL (0.550-1.02) Glomerular Filtration Rate Calc 60 mL/min (>90) BUN/Creatinine Ratio 19.6 (10.0-20.0) Serum Glucose 95 mg/dL (74-106) Calcium Level 9.0 mg/dL (8.7-10.4) Urine Color Light-yellow (Yellow) Urine Clarity Clear (Clear) Urine pH 5.5 (5.0-9.0) Urine Specific [place] 1.009 (1.001-1.035) Urine Protein Negative (Negative) Urine Ketones Negative (Negative) Urine Blood Negative /uL (Negative) Urine Nitrite Negative (Negative) Urine Bilirubin Negative (Negative) Urine Urobilinogen Normal mg/dL (Negative) Urine Leukocyte Esterase Negative /uL (Negative) Urine RBC <1 /hpf (0 - 4) Urine WBC 2 /hpf (0 - 5) Urine Squamous Epithelial Cells Few /hpf (<5) Urine Bacteria None seen /hpf (None Seen) Urine Glucose Normal mg/dL (Normal) Troponin I High Sensitivity 6 ng/L (</=34) Prothrombin Time 11.9 sec (9.3-11.8) Prothrombin Time INR 1.13 (0.9-1.15) Activated Partial Thromboplast Time 29.6 SEC (24.5-34.5) D-Dimer, Quantitative 0.61 mg/L FEU (0.0-0.49) Total Bilirubin 0.7 mg/dL (0.2-1.0) Aspartate Amino Transferase (AST) 49 U/L (13-40) Alanine Aminotransferase (ALT) 23 U/L (7-40) Alkaline Phosphatase 197 U/L (46-116) B-Type Natriuretic Peptide 330.36 pg/mL (0-100) Total Protein 6.4 g/dL (5.7-8.2) Albumin 4.2 g/dL (3.2-4.8) Other Laboratory Tests 11/12/24 06:38 Brief Hx & Hospital Course: 89-year-old female with past history of CHF, a fib, Hypertension, hyperlipidemia, CKD Presents with complaints of uncontrolled hypertension x 3 days. Patient also endorses shortness of breath with palpitations And dizziness. Patient states that she feels very short of breath When she feels the fluttering in her chest. Patient also endorses that she stopped taking Lasix in The last months. Patient also endorses That PCP sent her into the emergency department for evaluation. On arrival to the emergency department patient's blood pressure was 182/80 And was experiencing the symptoms. Patient denies fevers, chills, Nausea, vomiting, Leg swelling. 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 Dorsey. She is admitted and evaluated by her video production intern. Patient had a 2D echocardiogram. Patient is recommended to have her blood pressure controlled. Therefore hypertensive medication as added. On blood pressure has been improved. Baseline pain-free. No shortness on breath and fast heart rate amputations also improved. She is not having any other issues. Having had necessary workup and evaluation and feeling better back to baseline status it is felt she could be safely discharged home. However I have talked with the patient regarding her high blood pressure, medication adjustment, treatment she received and discharge diagnosis as well as discharge follow-up plan of care. She has verbalized understanding of these and agree with the discharge care plan as mentioned. Consults/Reason for consult Assessment moderate chf with systolic and diastolic NYHA class III CKD htn HTN HL afib hx Plan/Recommendation HR is SR now bp at goal now, bp was elevated on admit hx of low ef on echo ACS is ruled out bnp is mildly elevated, prn diuretics cont home meds dc home when stable Plan discussed with: Patient YOON DORSEY MD Nov 11, 2024 12:31 Operations or Procedures EXAM: Two-dimensional and M-mode echocardiogram with Doppler and color Doppler. Blood Pressure: 130/50 mmHg INDICATION Elevated BNP RISK FACTORS Height: 5' 3", Weight: 150 DIMENSIONS LVDd 4.3 (3.8-5.7cm) LA (2D) 4.0 (1.9-4.0cm) Aortic Root 3.4 (2.0- 3.7cm) LVDs 3.2 (2.5-4.0cm) LA (MM) (1.9-4.0cm) Aortic Cusp Exc 1.4 (1.5- 2.0cm) EF (%) 50.0 (55-70%) Rt. Atrium 4.8 (1.9-4.0cm) Asc. Aorta cm IVSd 1.1 (0.7-1.1cm) RV (D) (1.8-2.4cm) PWd 1.0 (0.7-1.1cm) Mitral Valve Mitral Mitral Stenosis E wave 1.10m/s MV Mean GR. mmHg A wave 0.50m/s MV Peak GR. mmHg E/A ratio 2.2 2D MVA cm2 Aortic Valve Aortic Valve Aortic Stenosis V1 0.60m/s AO Mean GR. 3mmHg V2 1.20m/s AO Peak GR. 6mmHg LVOT Diameter 2.2 (1.8-2.4cm) Doppler TANVI 1.90cm2 AI P 1/2 Time 658.57ms Pulmonic Valve V2 0.40m/s Tricuspid Valve TR Velocity 2.90m/s RVSP 40mmHg Conclusion lvef 40% by visuale stimate RV enlarged left atrium enlarged SIGNED BY: YOON DORSEY MD SIGNED DATE/TIME: 11/11/24 7305 Condition at Discharge: Stable Final Diagnosis/Problems List Hypertension Discharge Disposition: Home Discharge Instruct/Medications Diet: Consistent carbohydrate, Cardiac 2g Na,low cholest Activity: No Restrictions, As Tolerated Follow Up/Referral: PMD next week to check blood pressure and intense BP medications Medications: As prescribed and home medications per discharge med reconciliation list Changed Medications: Losartan Potassium (Losartan Potassium) 50 Mg Tab 50 MG PO DAILY, #30 MG (Changed from: BID; Removed Days) Continued Medications: Albuterol Sulfate (Ventolin Mdi) 90 Mcg Ih 90 MCG IN Q6HPRN PRN, #1 INHALER Amiodarone Hcl (Amiodarone Hcl) 200 Mg Tab 100 MG PO BID for 30 Days Apixaban Base (Eliquis) 2.5 Mg Tab 2.5 MG PO BID, #60 TAB Furosemide (Lasix) 20 Mg Tb 1 TAB PO DAILY@DINNER, #90 TAB 1 Refill Lovastatin (Lovastatin) 20 Mg Tab 20 MG PO, TAB Nebivolol Hcl (Bystolic) 5 Mg Tab 5 MG PO BID, #60 TAB (This prescription has been renewed) Discontinued Medications: Doxycycline Monohydrate (Doxycycline Monohydrate) 100 Mg Tab 100 MG PO Q12H, #14 TAB Furosemide (Lasix) 40 Mg Tab 40 MG PO DAILY@BREAKFAST, #30 TAB Discharge Statement: "Patient was advised to return to the ER or call 911 if any headaches, dizziness, shortness of breath, chest pain, abdominal pain, bleeding, fevers, or worsening of medical condition. Patient was counseled about treatment plan, medications, possible side effects, patientverbalized understanding. All questions were answered to the best of my ability. This discharge took greater then 30 minutes in planning, reviewing documentation, counseling the patient, and discussing with other team members." ASSESSMENT ASSESSMENT Assessment Hypertension ZEB JEAN BAPTISTE MD Nov 12, 2024 14:42
== END 2024-11-12 17:30 | disposition home health service (06) | DRG 291 ==
LOC: EDBD 15:52 → ER 15:58 → TELE 11-11 05:02 → TELE-WESTW 11-11 17:45
PROVIDERS: ADMIT Nurse Practitioner Family; ATTEND Nurse Practitioner Family
DX: I13.0 Hypertensive heart and chronic kidney disease with heart failure and stage 1 through stage 4 chronic kidney disease, or unspecified chronic kidney disease (principal); I50.43 Acute on chronic combined systolic (congestive) and diastolic (congestive) heart failure; I48.20 Chronic atrial fibrillation, unspecified; I16.0 Hypertensive urgency; N18.9 Chronic kidney disease, unspecified; E78.5 Hyperlipidemia, unspecified; D64.9 Anemia, unspecified; Z88.1 Allergy status to other antibiotic agents; Z82.0 Family history of epilepsy and other diseases of the nervous system; Z82.49 Family history of ischemic heart disease and other diseases of the circulatory system; Z79.01 Long term (current) use of anticoagulants
CPT/HCPCS: 36415; 70450; 71045; 71275; 80048; 80053; 81001; 83880; 84484; 85025; 85379; 85610; 85730; 93005; 93306; 97163; G0378; J2405